=== PATIENT | female | born 1955 | race Caucasian/White ===

== ENCOUNTER → 2018-04-03 | Outpatient (CLI) | payer BC ==
--- NOTE | 2018-04-03 18:58 | Diagnostic Imaging Report ---
INDICATION: Abnormality. EXAMINATION: Left breast digital diagnostic mammogram with CAD. The current study was also evaluated with a Computer Aided Detection (CAD) system. FINDINGS: There are scattered fibroglandular densities, bilaterally. There is a well-circumscribed mass in the inferior medial aspect of the left breast. There are a few benign type calcifications. There is no other dominant mass, spiculated lesion or suspicious calcification identified. The skin, nipple and axilla are unremarkable. Ultrasound of the left breast was also performed. This demonstrated a solid hypoechoic mass in the 8 o'clock position of the left breast. IMPRESSION: Solid mass at the 8 o'clock position of the left breast. Further evaluation with ultrasound-guided biopsy is recommended to exclude malignancy. ACR BI-RADS Category 4: Suspicious abnormality. Result letter will be mailed to the patient. Note: At least 10% of breast cancer is not imaged by mammography. Dictated by: Dictated on workstation # [id number]
--- NOTE | 2018-04-04 08:08 | Diagnostic Imaging Report ---
Indication: Left breast lump. Technique: Limited real-time grayscale images were obtained of the left breast in various projections. Findings: There is nonspecific heterogeneous nodule in the 8 o'clock position in the left breast 1 cm from the nipple. This measures 0.8 x 0.7 x 0.6 cm. There is no definitive internal blood flow. There is some questionable posterior acoustic shadowing. No other discrete solid or cystic mass. Impression: Category 4 suspicious. Hypoechoic heterogeneous nodule with posterior acoustic shadowing in the 8 o'clock position of the left breast. Further evaluation with ultrasound-guided biopsy is recommended to exclude malignancy. ACR BI-RADS Category 4: Suspicious abnormality. Result letter will be mailed to the patient. Note: At least 10% of breast cancer is not imaged by mammography. Dictated by: Dictated on workstation # [id number]
== END ==
LOC: RAD 12:24
PROVIDERS: ATTEND Family Medicine
DX: N63.20 Unspecified lump in the left breast, unspecified quadrant (principal); J18.9 Pneumonia, unspecified organism; M06.9 Rheumatoid arthritis, unspecified
CPT/HCPCS: 76641; 77066

== ENCOUNTER → 2019-03-27 | Outpatient (CLI) | payer OTHER ==
--- NOTE | 2019-03-30 08:59 | Diagnostic Imaging Report ---
INDICATION: Screening The current study was also evaluated with a Computer Aided Detection (CAD) system. 3-D Tomographic imaging was also performed. Comparison made with prior examination of 04/03/2018. FINDINGS: There are scattered fibroglandular densities bilaterally. There are a few benign type calcifications. There is no partially circumscribed density in the medial aspect of the left breast which is smaller than the prior examination. There is no new dominant mass, spiculated lesion or suspicious calcification identified. Skin, nipples and axillae are unremarkable. IMPRESSION: Category 2 benign. ACR BI-RADS Category 2: Benign findings. Result letter will be mailed to the patient. Note: At least 10% of breast cancer is not imaged by mammography. Dictated by: Dictated on workstation # [id number]
== END ==
LOC: RAD 08:45
PROVIDERS: ATTEND Family Medicine
DX: Z12.31 Encounter for screening mammogram for malignant neoplasm of breast (principal)
CPT/HCPCS: 77067

== ENCOUNTER → 2021-07-17 | Outpatient (CLI) | payer MEDICARE, OTHER ==
[2021-07-17 11:17] LABS: HEMATOCRIT 42 % (35-52); HEMOGLOBIN 13.8 g/dL (11.5-16.0); MEAN CORPUSCULAR HGB CONC 33 g/dL (32-36)
[2021-07-17 11:19] LABS: BASOPHILS % (AUTO) 1 % (0-10); EOSINOPHILS # (AUTO) 0.1 10^3/uL (0.0-0.3); EOSINOPHILS % (AUTO) 3 % (0-10); LYMPHOCYTES % (AUTO) 29 % (12-44); MEAN CORPUSCULAR HEMOGLOBIN 31 pg (25-34); MEAN CORPUSCULAR VOLUME 94 fL (80-99); MEAN PLATELET VOLUME 12.4 fL (9.0-12.2); MONOCYTES # (AUTO) 0.1 10^3/uL (0.0-1.0); MONOCYTES % (AUTO) 3 % (0-12); NEUTROPHILS # (AUTO) 2.3 10^3/uL (1.8-7.8); NEUTROPHILS % (AUTO) 64 % (42-75); WHITE BLOOD COUNT 3.6 10^3/uL (4.3-11.0)
[2021-07-17 11:49] LABS: PLATELET COUNT 65 10^3/uL (130-400)
== END ==
LOC: LAB 10:41
PROVIDERS: ATTEND Family Medicine
DX: D61.818 Other pancytopenia (principal); I10 Essential (primary) hypertension; W57.XXXA Bitten or stung by nonvenomous insect and other nonvenomous arthropods, initial encounter
CPT/HCPCS: 36415; 85025; 86618; 86666; 86668; 86757

== ENCOUNTER → 2022-02-26 | Outpatient (CLI) | payer MEDICARE, OTHER ==
--- NOTE | 2022-02-26 12:13 | Diagnostic Imaging Report ---
PROCEDURE: US Gallbladder. TECHNIQUE: Multiple real-time grayscale images were obtained over the right upper quadrant in various projections. INDICATION: Right upper quadrant pain The liver parenchyma is homogeneous with normal echotexture. Portal vein is patent with hepatopetal flow. Gallbladder is clear with no stones or wall thickening. Common duct is not dilated. Visualized portions of the pancreas are unremarkable. Aorta and IVC appear normal. Right kidney measures 10.4 cm length and appears normal. There is no ascites. IMPRESSION: Unremarkable abdominal ultrasound Dictated by: Dictated on workstation # [id number]
== END ==
LOC: RAD 11:15
PROVIDERS: ATTEND Family Medicine
DX: R10.11 Right upper quadrant pain (principal)
CPT/HCPCS: 76705

== ENCOUNTER → 2022-05-03 | Outpatient (CLI) | payer MEDICARE, OTHER ==
[~2022-05-03] VITALS: Ht 162.6 cm; Wt 85.5 kg
[~2022-05-03] MED LIST: LIDOCAINE 1% INJ 30 ML (XYLOCAINE) VIAL INJ ONE
--- NOTE | 2022-05-03 12:22 | Diagnostic Imaging Report ---
Indication: Right breast nodule. Patient status post ultrasound-guided biopsy. Unilateral right 2-D CC and ML mammography was performed after patient underwent ultrasound-guided right breast biopsy. Images demonstrate a marker clip in the upper outer right breast posterior depth adjacent to the nodular density. IMPRESSION: Marker clip placement, as described, status post ultrasound-guided right breast biopsy. Dictated by: Dictated on workstation # [id number]
--- NOTE | 2022-05-03 17:21 | Diagnostic Imaging Report ---
INDICATION: Right breast nodule. Patient presents for ultrasound-guided biopsy. PROCEDURE: Patient was brought to the ultrasound suite and placed on table in the supine position. Ultrasound imaging of the right breast was performed to evaluate appropriate entry site. Right breast was then prepped and draped in the usual sterile fashion. Small amount of 1% lidocaine was utilized for local anesthesia. A total of 5 core biopsies were performed of the hypoechoic nodule at 10:00 location of right breast, 8 cm from the nipple, utilizing a 14-gauge Achieve needle. A marker clip was then deployed. Hemostasis was obtained. Patient tolerated the procedure well and was sent for postprocedure mammogram in satisfactory condition. IMPRESSION: Successful ultrasound-guided core biopsy of the hypoechoic solid nodule at the 10:00 location in right breast, 8 cm from the nipple. Pathology results are currently pending. Dictated by: Dictated on workstation # [id number]
== END ==
LOC: RAD 11:00
PROVIDERS: ATTEND Family Medicine
DX: N63.11 Unspecified lump in the right breast, upper outer quadrant (principal)
CPT/HCPCS: 19083; 77065; G0279

== ENCOUNTER → 2022-05-16 | Outpatient (CLI) | payer MEDICARE, OTHER | LOC: LAB 13:22 | PROVIDERS: ATTEND Family Medicine | DX: R05.8 Other specified cough (principal) | CPT/HCPCS: 87070; 87101; 87205 ==

== ENCOUNTER → 2022-07-31 | Outpatient (CLI) | payer MEDICARE, OTHER ==
--- NOTE | 2022-07-31 13:30 | Diagnostic Imaging Report ---
INDICATION: Postmenopausal state. COMPARISON: None available FINDINGS: AP Spine L2-L4: [BMD (g/cm2): 1.060] [T-Score: -1.2] [Z-Score: -0.1] [BMD Previous: NA] [BMD % Change: NA] LT Hip Neck: [BMD (g/cm2): 0.752] [T-Score: -2.1] [Z-Score: -0.9] LT Hip Total: [BMD (g/cm2):0.794] [T-Score:-1.7] [Z-Score: -0.8] [BMD Previous: NA] [BMD % Change: NA] RT Hip Neck: [BMD (g/cm2):0.835] [T-Score:-1.5] [Z-Score:-0.3] RT Hip Total: [BMD (g/cm2):0.893] [T-score:-0.9] [Z-Score:0.0] [BMD Previous:NA] [BMD % Change:NA] *Indicates significant change from prior examination based on 95% confidence level. World Health Organization criteria for BMD interpretation classify patients as Normal (T-score at or above -1.0), Osteopenic (T-score between -1.0 and -2.5) or Osteoporotic (T-score at or below -2.5). LIMITATIONS AND MODIFICATION: None. FRACTURE RISK (FRAX SCORE): The ten year probability of (%): Major Osteoporotic Fracture: [11.0] Hip Fracture: [1.8] IMPRESSION: 1. Osteopenia (Low bone mass). 2. Baseline examination. 3. See below National Osteoporosis Foundation guidelines on when to potentially initiate pharmacologic therapy. Based on the National Osteoporosis Foundation Guidelines, pharmacologic treatment should be initiated in any of the following, unless clinical conditions suggest otherwise: * Any patient with prior fragility fracture of the hip or vertebrae. A spine fracture indicates 5X risk for subsequent spine fracture and 2X risk for subsequent hip fracture. * Osteoporosis (T-score <-2.5). * Postmenopausal women and men age 50 and older with low bone mass/osteopenia (T-score between -1.0 and -2.5) by DXA and 10-year major osteoporotic fracture greater than 20% or a 10-year probability of hip fracture greater than 3%. These fracture risks are supplied above in the FRAX score, if applicable. * Clinician judgement and/or patient preferences may indicate treatment for people with 10-year fracture probabilities above or below these levels. Dictated by: Dictated on workstation # [id number]
== END ==
LOC: RAD 09:13
PROVIDERS: ATTEND Internal Medicine Hematology & Oncology
DX: M85.89 Other specified disorders of bone density and structure, multiple sites (principal); Z79.811 Long term (current) use of aromatase inhibitors; Z78.0 Asymptomatic menopausal state
CPT/HCPCS: 77080